=== PATIENT | male | born 1950 | race Asian ===

== ENCOUNTER 2018-04-18 20:46 | Inpatient (IN) | payer OTHER ==
[~2018-04-18] VITALS: Ht 172.7 cm; Wt 72.1 kg
[2018-04-18 21:46] LABS: BASOPHILS % (AUTO) 0.5 % (0.0-2.0); EOSINOPHILS % (AUTO) 0.5 % (1.0-6.0); HEMATOCRIT 42.3 % (41-53); HEMOGLOBIN 13.2 g/dL (13.5-17.5); LYMPHOCYTES # (AUTO) 1.7 K/uL (1.0-4.8); LYMPHOCYTES % (AUTO) 14.2 % (22.0-44.0); MEAN CORPUSCULAR HEMOGLOBIN 20.5 pg (26.0-34.0); MEAN CORPUSCULAR HGB CONC 31.2 G/dL (31.0-37.0); MEAN CORPUSCULAR VOLUME 66 fL (80-100); MONOCYTES # (AUTO) 0.8 K/uL (0.1-1.0); MONOCYTES % (AUTO) 6.6 % (2.0-9.0); NEUTROPHILS # (AUTO) 9.3 K/uL (1.8-7.7); NEUTROPHILS % (AUTO) 78.2 % (40.0-70.0); PLATELET COUNT (AUTO) 290 K/uL (150-450); RED BLOOD CELL COUNT(AUTO) 6.44 MIL/uL (4.50-5.90); RED CELL DISTRIBUTION WIDTH 15.3 % (11.5-14.5)
[2018-04-18 21:58] LABS: ANION GAP 12 mmol/L (8-16); CARBON DIOXIDE 26 mmol/L (22-29); CHLORIDE 100 mmol/L (98-107); CREATININE 1.59 mg/dL (0.60-1.30); GLOMERULAR FILTR. RATE CALC 44 mL/min (>60); GLUCOSE,RANDOM 161 mg/dL (70-110); POTASSIUM 3.6 mmol/L (3.5-5.1); SODIUM SERUM 138 mmol/L (136-145); UREA NITROGEN, BLOOD 20 mg/dL (7-18)
[2018-04-18 22:08] LABS: PLATELET MORPHOLOGY COMMENT GIANT PLTS PRESENT
[2018-04-18 22:09] LABS: B-TYPE NATRIURETIC PEPTIDE 6 pg/mL (0-100)
[2018-04-18] MEDS ORDERED: IOVERSOL 320 MG/ML 100 ML VIAL ONE (22:14)
[2018-04-18] MEDS ORDERED: SODIUM CHLORIDE 0.9% 100 ML ONE (22:14)
[2018-04-18] MEDS ORDERED: SODIUM CHLORIDE 0.9% 1,000 ML IV ONE (22:15)
[2018-04-18 22:23] LABS: ALANINE AMINOTRANSFERASE 35 U/L (12-78); ALBUMIN 3.5 g/dL (3.4-5.0); ALKALINE PHOSPHATASE 78 U/L (46-116); ASPARTATE AMINOTRANSFERASE 21 U/L (15-37); BILIRUBIN,TOTAL 0.2 mg/dL (0.1-1.0); CREATINE KINASE, TOTAL ONLY 95 U/L (39-308)
[2018-04-19] MEDS ORDERED: BISACODYL 10 MG RECTAL RECTAL SUPPOSITORY PR PRN
[2018-04-19] MEDS ORDERED: ZOLPIDEM TARTRATE 5 MG TABLET PO PRN
[2018-04-19] MEDS ORDERED: HYDROCODONE/ACETAMINOPHEN 5-325 MG TABLET PO PRN
[2018-04-19] MEDS ORDERED: ACETAMINOPHEN 325 MG TABLET PO PRN
[2018-04-19] MEDS ORDERED: MAGNESIUM HYDROXIDE SUSPENSION 30 ML UDCUP PO PRN
[2018-04-19] MEDS ORDERED: ONDANSETRON HCL 4 MG/2 ML VIAL IVP PRN
[2018-04-19] MEDS ORDERED: MORPHINE SULFATE 2 MG/ML SYRINGE IVP PRN
[2018-04-19] MEDS: NITROGLYCERIN 2% (1 GM=INCH) PACKET TP SCH ×3 (00:35→16:00)
[2018-04-19] MEDS: HEPARIN SODIUM,PORCINE 5,000 UNITS/ML VIAL SQ SCH ×3 (00:35→16:00)
[2018-04-19 02:57] VITALS: BP 124/81
[2018-04-19 06:19] LABS: BASOPHILS % (AUTO) 0.5 % (0.0-2.0); EOSINOPHILS % (AUTO) 1.1 % (1.0-6.0); HEMATOCRIT 38.6 % (41-53); HEMOGLOBIN 12.2 g/dL (13.5-17.5); LYMPHOCYTES # (AUTO) 1.6 K/uL (1.0-4.8); LYMPHOCYTES % (AUTO) 19.6 % (22.0-44.0); MEAN CORPUSCULAR HEMOGLOBIN 20.5 pg (26.0-34.0); MEAN CORPUSCULAR HGB CONC 31.6 G/dL (31.0-37.0); MEAN CORPUSCULAR VOLUME 65 fL (80-100); MONOCYTES # (AUTO) 0.7 K/uL (0.1-1.0); MONOCYTES % (AUTO) 9.2 % (2.0-9.0); NEUTROPHILS # (AUTO) 5.7 K/uL (1.8-7.7); NEUTROPHILS % (AUTO) 69.6 % (40.0-70.0); PLATELET COUNT (AUTO) 283 K/uL (150-450); RED BLOOD CELL COUNT(AUTO) 5.94 MIL/uL (4.50-5.90); RED CELL DISTRIBUTION WIDTH 15.6 % (11.5-14.5)
[2018-04-19 06:41] LABS: CALCIUM, TOTAL 8.9 mg/dL (8.8-10.5); CHOL/HDL RATIO 3.5 (4.2-7.3); CREATININE 1.23 mg/dL (0.60-1.30)
[2018-04-19 06:54] LABS: GLUCOMETER DEV NAME(LOC) 5N 1P; GLUCOSE,POINT OF CARE 122 MG/DL (70-110)
[2018-04-19 07:27] VITALS: BP 127/67
[2018-04-19] MEDS ORDERED: PANTOPRAZOLE SODIUM 40 MG DR TABLET PO SCH (09:00)
[2018-04-19] MEDS ORDERED: DOCUSATE SODIUM 100 MG CAPSULE PO SCH (09:00)
[2018-04-19] MEDS ORDERED: ASPIRIN 81 MG CHEWABLE TABLET PO SCH (09:00)
[2018-04-19 10:52] VITALS: BP 110/63
[2018-04-19 15:31] VITALS: BP 127/79
[2018-04-19] MEDS ORDERED: ASPI81TA39 PO (16:29)
== END 2018-04-19 17:40 | disposition home or self-care (01) | DRG 469 ==
LOC: EMS 20:46 → 5N 04-19 00:02 → UNDOADMIN 04-19 00:02
PROVIDERS: ADMIT Internal Medicine; ATTEND Internal Medicine
DX: N17.9 Acute kidney failure, unspecified (principal); E11.22 Type 2 diabetes mellitus with diabetic chronic kidney disease; F02.80 Dementia in other diseases classified elsewhere, unspecified severity, without behavioral disturbance, psychotic disturbance, mood disturbance, and anxiety; R07.89 Other chest pain; F45.41 Pain disorder exclusively related to psychological factors; N18.9 Chronic kidney disease, unspecified; R91.8 Other nonspecific abnormal finding of lung field; R00.0 Tachycardia, unspecified; Z87.891 Personal history of nicotine dependence
CPT/HCPCS: 71260; 93005; 93306; 99285; J1644; J7050

== ENCOUNTER 2018-09-08 06:50 | Day surgery (SDC) | payer OTHER ==
[~2018-09-08] VITALS: Ht 172.7 cm; Wt 73.0 kg
[~2018-09-08 06:50] MED LIST: ASPI81TA39 PO; CeFAZolin 2 GM/DEXTROSE 50 ML IV ONE; RINGERS SOLUTION,LACTATED 1,000 ML IV ONE
[2018-09-08] MEDS ORDERED: DEXAMETHASONE SOD PHOS 4 MG/ML VIAL IVP ONE (06:51)
[2018-09-08] MEDS ORDERED: ONDANSETRON HCL 4 MG/2 ML VIAL IVP ONE (06:51)
[2018-09-08] MEDS ORDERED: MIDAZOLAM HCL 2 MG/2 ML VIAL IVP ONE (06:51)
[2018-09-08] MEDS ORDERED: LIDOCAINE/PF 2% 5 ML VIAL IM ONE (06:51)
[2018-09-08] MEDS ORDERED: KETOROLAC TROMETHAMINE 60 MG/2 ML VIAL IM ONE (06:51)
[2018-09-08] MEDS ORDERED: PROPOFOL 1% 20 ML VIAL IVP ONE (06:51)
[2018-09-08] MEDS ORDERED: EPHEDrine SULFATE 50 MG/ML VIAL IM ONE (06:51)
[2018-09-08] MEDS ORDERED: RINGERS SOLUTION,LACTATED 1,000 ML IV ONE ×2 (07:03→10:34)
[2018-09-08] MEDS ORDERED: CeFAZolin 2 GM/DEXTROSE 50 ML IV ONE (07:03)
[2018-09-08] MEDS ORDERED: ACETAMINOPHEN 1000 MG/ISO-OSM 100 ML IV ONE (07:26)
[2018-09-08 07:30] LABS: BASOPHILS % (AUTO) 0.8 % (0.0-2.0); EOSINOPHILS % (AUTO) 3.8 % (1.0-6.0); HEMATOCRIT 42.4 % (41-53); HEMOGLOBIN 13.2 g/dL (13.5-17.5); LYMPHOCYTES % (AUTO) 27.7 % (22.0-44.0); MEAN CORPUSCULAR HEMOGLOBIN 20.7 pg (26.0-34.0); MEAN CORPUSCULAR HGB CONC 31.2 G/dL (31.0-37.0); MEAN CORPUSCULAR VOLUME 66 fL (80-100); MONOCYTES # (AUTO) 0.5 K/uL (0.1-1.0); MONOCYTES % (AUTO) 6.9 % (2.0-9.0); NEUTROPHILS # (AUTO) 4.4 K/uL (1.8-7.7); NEUTROPHILS % (AUTO) 60.8 % (40.0-70.0); PLATELET COUNT (AUTO) 331 K/uL (150-450); RED CELL DISTRIBUTION WIDTH 14.5 % (11.5-14.5)
[2018-09-08 07:43] LABS: ANION GAP 6 mmol/L (8-16); CALCIUM, TOTAL 9.4 mg/dL (8.8-10.5); CARBON DIOXIDE 32 mmol/L (22-29); CHLORIDE 100 mmol/L (98-107); CREATININE 1.18 mg/dL (0.60-1.30); GLOMERULAR FILTR. RATE CALC > 60 mL/min (>60); GLUCOSE,RANDOM 114 mg/dL (70-110); SODIUM SERUM 138 mmol/L (136-145); UREA NITROGEN, BLOOD 11 mg/dL (7-18)
[2018-09-08 07:49] LABS: ALANINE AMINOTRANSFERASE 56 U/L (12-78); ALBUMIN 3.8 g/dL (3.4-5.0); ALKALINE PHOSPHATASE 100 U/L (46-116); ASPARTATE AMINOTRANSFERASE 24 U/L (15-37); BILIRUBIN,TOTAL 0.3 mg/dL (0.1-1.0); TOTAL PROTEIN, SERUM 8.4 g/dL (6.4-8.2)
[2018-09-08] MEDS ORDERED: LOSA25TA41 PO (08:11)
[2018-09-08] MEDS ORDERED: METF-960 PO (08:11)
[2018-09-08] MEDS ORDERED: HYDR-3110 PO (08:11)
[2018-09-08] MEDS ORDERED: ATOR40TA28 PO (08:11)
[2018-09-08] MEDS ORDERED: LIDOCAINE 2%/EPI 1:200,000/PF 20 ML VIAL ONE (08:33)
[2018-09-08] MEDS ORDERED: GUM MASTIC/STORAX/MSAL/ALCOHOL LIQUID 0.67 ML VIAL TP ONE (08:33)
[2018-09-08] MEDS ORDERED: BUPIVACAINE HCL/PF 0.5% 30 ML VIAL ONE (08:33)
[2018-09-08] MEDS ORDERED: MEPERIDINE-PF 25 MG/ML VIAL IVP PRN (09:45)
[2018-09-08] MEDS ORDERED: HYDROmorphone 2 MG/ML SYRINGE IVP PRN (09:45)
[2018-09-08] MEDS ORDERED: FentaNYL CITRATE-PF 100 MCG/2 ML VIAL IVP PRN (09:45)
[2018-09-08] MEDS ORDERED: HYDROCODONE/ACETAMINOPHEN 5-325 MG TABLET PO PRN (11:00)
[2018-09-08] MEDS ORDERED: IBUPROFEN 800 MG TABLET PO PRN (11:00)
[2018-09-08] MEDS ORDERED: ACETAMINOPHEN 500 MG TABLET PO PRN (11:00)
== END 2018-09-08 12:55 | disposition home or self-care (01) ==
LOC: SURGERY 06:50
PROVIDERS: ATTEND Surgery
DX: K40.30 Unilateral inguinal hernia, with obstruction, without gangrene, not specified as recurrent (principal); E11.9 Type 2 diabetes mellitus without complications; I10 Essential (primary) hypertension; E78.00 Pure hypercholesterolemia, unspecified; F03.90 Unspecified dementia, unspecified severity, without behavioral disturbance, psychotic disturbance, mood disturbance, and anxiety; F10.21 Alcohol dependence, in remission; Z86.2 Personal history of diseases of the blood and blood-forming organs and certain disorders involving the immune mechanism; Z87.09 Personal history of other diseases of the respiratory system; Z87.828 Personal history of other (healed) physical injury and trauma; Z87.891 Personal history of nicotine dependence; Z79.84 Long term (current) use of oral hypoglycemic drugs; Z79.2 Long term (current) use of antibiotics; Z79.899 Other long term (current) drug therapy
CPT/HCPCS: 88302; 93005; J0131; J0690; J1100; J1885; J2250; J2405; J2704; J3490; J7120

== ENCOUNTER 2021-07-16 16:16 | Emergency (ER) | payer MEDICARE, OTHER ==
[~2021-07-16] VITALS: Ht 172.7 cm; Wt 75.0 kg
[~2021-07-16 16:16] MED LIST changes: -ASPI81TA39 PO; +ATOR40TA28 PO; -CeFAZolin 2 GM/DEXTROSE 50 ML IV ONE; +HYDR-3831 PO; +LOSA25TA21 PO; +METF-1211 PO; -RINGERS SOLUTION,LACTATED 1,000 ML IV ONE
[2021-07-16] MEDS ORDERED: KETOROLAC TROMETHAMINE 30 MG/ML VIAL IM ONE (18:00)
[2021-07-16 19:53] VITALS: BP 152/86
== END 2021-07-16 19:58 | disposition home or self-care (01) ==
LOC: EMS 16:16
DX: M79.671 Pain in right foot (principal); R73.03 Prediabetes
CPT/HCPCS: 73630; 96372; 99283; J1885; 29540; 99284

== ENCOUNTER 2023-10-13 07:03 | Emergency (ER) | payer MEDICARE, OTHER ==
[~2023-10-13] VITALS: Ht 167.6 cm; Wt 68.2 kg
[~2023-10-13 07:03] MED LIST changes: +LOSA-381 PO; -LOSA25TA21 PO
[2023-10-13] MEDS ORDERED: GLIP10TA10 PO (07:11)
[2023-10-13] MEDS ORDERED: LOSA-382 PO (07:12)
[2023-10-13] MEDS ORDERED: EMPA25TA3 PO (07:12)
[2023-10-13 07:21] VITALS: TEMP 99.3
[2023-10-13 07:52] LABS: COVID AG,FIA SOURCE NASAL SWAB
[2023-10-13 07:55] LABS: BASOPHILS % (AUTO) 0.3 % (0.0-2.0); EOSINOPHILS % (AUTO) 2.2 % (1.0-6.0); HEMOGLOBIN 13.3 g/dL (13.5-17.5); LYMPHOCYTES # (AUTO) 1.2 K/uL (1.0-4.8); LYMPHOCYTES % (AUTO) 10.5 % (22.0-44.0); MEAN CORPUSCULAR HEMOGLOBIN 20.6 pg (26.0-34.0); MEAN CORPUSCULAR VOLUME 67 fL (80-100); MONOCYTES # (AUTO) 0.8 K/uL (0.1-1.0); MONOCYTES % (AUTO) 7.2 % (2.0-9.0); NEUTROPHILS # (AUTO) 8.9 K/uL (1.8-7.7); NEUTROPHILS % (AUTO) 79.8 % (40.0-70.0); PLATELET COUNT (AUTO) 309 K/uL (150-450); RED BLOOD CELL COUNT(AUTO) 6.47 MIL/uL (4.50-5.90); RED CELL DISTRIBUTION WIDTH 14.9 % (11.5-14.5); WHITE BLOOD COUNT (AUTO) 11.1 K/uL (4.5-11.0)
[2023-10-13 08:03] LABS: CREATININE 1.8 mg/dL (0.60-1.30); POTASSIUM 3.8 mmol/L (3.5-5.1)
[2023-10-13 08:09] LABS: ALBUMIN 3.1 g/dL (3.4-5.0); BILIRUBIN,TOTAL 0.3 mg/dL (0.1-1.0); TOTAL PROTEIN, SERUM 7.8 g/dL (6.4-8.2)
[2023-10-13 08:19] LABS: URIC ACID 7.8 mg/dL (2.6-7.2)
[2023-10-13 08:21] LABS: SARS-COV2 (COVID) ANTIGEN,FIA Negative (Negative)
[2023-10-13 08:22] LABS: INFLUENZA TYPE A NEGATIVE FOR TYPE A (NEGATIVE); INFLUENZA TYPE B NEGATIVE FOR TYPE B (NEGATIVE)
[2023-10-13 08:24] LABS: RBC MORPHOLOGY COMMENT ABNORMAL RBC MORPH
[2023-10-13] MEDS ORDERED: COLC0.6T73 PO (09:02)
[2023-10-13] MEDS ORDERED: INDO-16 PO (09:02)
[2023-10-13] MEDS ORDERED: ACET-2080 PO (09:02)
[2023-10-13] MEDS: ACETAMINOPHEN/CODEINE 300-30 MG TABLET PO ONE (09:47)
[2023-10-13] MEDS: COLCHICINE 0.6 MG TABLET PO ONE (09:48)
[2023-10-13 10:49] VITALS: BP 111/61; PULSE 98; RESP 18
== END 2023-10-13 10:56 | disposition home or self-care (01) ==
LOC: EMS 07:04
DX: M25.571 Pain in right ankle and joints of right foot (principal); M10.9 Gout, unspecified; N28.9 Disorder of kidney and ureter, unspecified; R73.03 Prediabetes; Z87.891 Personal history of nicotine dependence; Z20.822 Contact with and (suspected) exposure to COVID-19
CPT/HCPCS: 71045; 80053; 84550; 85025; 87804; 99284; 36415-L1; 36415-TC